=== PATIENT | male | born 1945 | race Caucasian/White ===

== ENCOUNTER 2022-07-22 10:16 | Emergency (ER) | payer MEDICARE ==
[2022-07-22] MEDS ORDERED: Lidocaine 1% (PF) 30 ML VIAL ONE (10:53)
[2022-07-22 11:51] LABS: BF Color Yellow; Body Fluid Source Synovial Fluid; Clarity Cloudy/Turbid (Clear); Tube # EDTA
[2022-07-22 12:22] LABS: Lymphocytes 9 %
[2022-07-22 12:23] LABS: BF Segmented Neutrophils 70 %; Cell Count Non Hematic 21 %
[2022-07-22 14:00] LABS: Synovial Fluid, Protein 3.7 g/dL (Not Available)
== END 2022-07-22 12:22 | disposition home or self-care (01) ==
LOC: CSHERS 10:16
DX: M25.562 Pain in left knee (principal)
CPT/HCPCS: 20610; 82945; 84157; 87070; 87205; 89051; 89060; J2001